=== PATIENT | female | born 1975 | race Caucasian/White ===

== ENCOUNTER → 2019-04-30 | Outpatient (CLI) | payer OTHER | END | disposition home or self-care (01) | LOC: US 15:22 | DX: D28.1 Benign neoplasm of vagina (principal); N92.0 Excessive and frequent menstruation with regular cycle; Z90.721 Acquired absence of ovaries, unilateral ==

== ENCOUNTER → 2019-05-21 | Day surgery (SDC) | payer OTHER ==
[2019-05-17 08:24] VITALS: BP 149/87
[2019-05-17 10:08] LABS: INTERNATIONAL NORM RATIO 2.9 (2.0-3.5)
[~2019-05-21] VITALS: Ht 152.4 cm; Wt 61.2 kg
[2019-05-21] VITALS (7 sets, daily range): BP systolic 116–167; BP diastolic 71–99
[~2019-05-21] MED LIST: CELECOXIB100 M1 PO; ENOXAPARIN60 MG/0.2 SQ; FEROSUL325 MG PO; NORCO 5-325 TA1 EACH PO; TIZANIDINE2 MG PO; VALACYCLOVIR H500 M1 PO; VITAMIN D50000 UNIT PO; WARFARIN SODIUM3 MG PO
[2019-05-21 08:29] LABS: INTERNATIONAL NORM RATIO 1.2 (2.0-3.5)
== END | disposition home or self-care (01) ==
LOC: SDC 05-17 08:00
PROVIDERS: Obstetrics & Gynecology
DX: D25.9 Leiomyoma of uterus, unspecified (principal); N83.292 Other ovarian cyst, left side; N93.9 Abnormal uterine and vaginal bleeding, unspecified; N83.8 Other noninflammatory disorders of ovary, fallopian tube and broad ligament; Z88.8 Allergy status to other drugs, medicaments and biological substances; Z79.899 Other long term (current) drug therapy; Z98.890 Other specified postprocedural states